=== PATIENT | male | born 1960 | race Caucasian/White ===

== ENCOUNTER 2017-07-17 15:41 | Emergency (ER) | payer BC ==
[~2017-07-17] VITALS: Ht 175.3 cm; Wt 78.7 kg
[2017-07-17 16:13] LABS: BASOPHIL (%) 0.2 % (0-1); EOSINOPHIL (%) 0.1 % (0-5); HEMATOCRIT 44.7 % (38.0-50.0); HEMOGLOBIN 15.9 G/DL (12.5-16.6); IMMATURE GRANULOCYTE (%) 0.3 % (0.0-0.7); LYMPHOCYTE (%) 15.8 % (15-42); LYMPHOCYTE COUNT 2.3 K/uL (1.0-2.8); MCH 31.7 PG (29.0-34.0); MCHC 35.6 G/DL (30.0-36.0); MCV 89.2 FL (86-99); MONOCYTE (%) 6.8 % (3-12); NEUTROPHIL (%) 76.8 % (45-76); NEUTROPHIL COUNT 11.3 K/uL (1.8-6.4); PLATELET COUNT 255 K/uL (156-360); RBC DIS.WIDTH-CV 12.2 % (11.8-14.6); RBC DIS.WIDTH-SD 39.6 % (39-53); RED BLOOD COUNT 5.01 M/uL (4.00-5.50); WHITE BLOOD COUNT 14.7 K/uL (4.1-10.2)
[2017-07-17 16:25] LABS: ALBUMIN 4.6 g/dL (3.2-4.8); CHLORIDE 104 mEq/L (99-109); POTASSIUM 3.9 mEq/L (3.7-5.4); SODIUM 138 mEq/L (136-147)
[2017-07-17 16:26] LABS: APPEARANCE CLEAR ((CLEAR)); BILIRUBIN NEGATIVE; BLOOD NEGATIVE; COLOR YELLOW ((YELLOW)); GLUCOSE (STRIP) NEGATIVE; KETONES NEGATIVE; LEUKOCYTES NEGATIVE; NITRITE NEGATIVE; PROTEIN (STRIP) NEGATIVE; SPECIFIC GRAVITY 1.018 (1.000-1.030); UROBILINOGEN 0.2 MG/DL (0.2-1.0)
[2017-07-17 16:27] LABS: GLUCOSE 110 mg/dL (70-99); TOTAL PROTEIN 8.1 g/dL (6.4-8.3)
[2017-07-17 16:29] LABS: TOTAL BILIRUBIN 0.4 mg/dL (0.0-1.0)
[2017-07-17 16:31] LABS: ALKALINE PHOSPHATASE 95 IU/L (3-129); CREATININE 0.8 mg/dL (0.6-1.3); GFR ESTIMATE (CALCULATED) > 59 mL/min/ (58.99-99999)
[2017-07-17 16:32] LABS: UREA NITROGEN (BUN) 11 mg/dL (9-23)
[2017-07-17 16:33] LABS: AST (GOT) 17 IU/L (2-34); DIRECT BILIRUBIN 0.2 mg/dL (0.0-0.3)
[2017-07-17 16:34] LABS: ALT (GPT) 22 IU/L (3-49); LIPASE 24 U/L (1.0-51.0)
[2017-07-17] MEDS ORDERED: ZOFRAN ODT8 MG PO (18:51)
[2017-07-17] MEDS ORDERED: ZANTAC150 MG PO (18:51)
[2017-07-17] MEDS ORDERED: PROTONIX40 MG PO (18:51)
[2017-07-17 19:18] VITALS: BP 112/71
== END 2017-07-17 19:21 | disposition home or self-care (01) ==
LOC: EME 15:41
PROVIDERS: Physician Assistant
DX: K29.80 Duodenitis without bleeding (principal); E78.5 Hyperlipidemia, unspecified; I10 Essential (primary) hypertension; J45.909 Unspecified asthma, uncomplicated; F17.200 Nicotine dependence, unspecified, uncomplicated; Z88.5 Allergy status to narcotic agent
CPT/HCPCS: 74177; 80048; 80076; 81003; 83605; 83690; 85025; 99281; 99285; C9113; J1885; J2405; J3010; J7030; S0028